=== PATIENT | male | born 1995 | race Caucasian/White ===

== ENCOUNTER 2019-09-13 15:25 | Emergency (ER) | payer OTHER, SELFPAY ==
[~2019-09-13] VITALS: Ht 170.2 cm; Wt 68.0 kg
[2019-09-13 15:56] VITALS: BP 108/75; Ht 170.2 cm; Wt 68.0 kg
== END 2019-09-13 16:20 | disposition home or self-care (01) ==
LOC: ED 15:25
DX: R50.9 Fever, unspecified (principal); J02.9 Acute pharyngitis, unspecified; M79.10 Myalgia, unspecified site; R11.2 Nausea with vomiting, unspecified